=== PATIENT | male | born 1955 | race Caucasian/White ===

== ENCOUNTER 2022-06-08 08:58 | Day surgery (SDC) | payer MEDICARE ==
[~2022-06-08] VITALS: Ht 182.9 cm; Wt 95.5 kg
[~2022-06-08 08:58] MED LIST: ASPIRIN EC81 MG PO; LIPITOR20 MG PO; NITROGLYCERIN0.4 MG SL; NITROSTAT0.4 MG SL; PLAVIX75 MG PO; SYNTHROID150 MCG PO; ZESTRIL10 MG PO
--- NOTE | 2022-06-08 12:31 | NUR ---
06/08/22 1231 Lilliana Casas 1120 PT ARRIVED IN PACU NON RESPONSIVE TO NOXIOUS STIMULI WITH OPA IN PLACE. CHIN LIFT HELD BY IMTIAZ.
--- NOTE | 2022-06-09 09:15 | OR ---
[facility] [address] [place], [place] [address] Signed DATE OF OPERATION: 06/08/2022 SURGEON: Jyoti Vicente MD PREOPERATIVE DIAGNOSIS: History of tubular adenoma 2013; colon screening. POSTOPERATIVE DIAGNOSIS: Mild proctitis, no evidence of recurrent or new polyp. PROCEDURE: Total colonoscopy to cecum with biopsy of rectum. ANESTHESIA: Intravenous sedation, propofol infusion, Jyoti Jones CRNA. INDICATIONS: This 66-year-old white man is a patient of Dr. Manuel Escamilla and underwent colonoscopy by me in 2013 and found to have a tubular adenoma. I had recommend repeat colonoscopy in 3-5 years. He only recently has decided to proceed with colon evaluation. He has no symptoms of bleeding, diarrhea or constipation and is here for screening colonoscopy. Notably, he has a daily alcohol intake, which was significant and on that basis, propofol infusional sedation is recommended. Additionally notes from prior colonoscopy confirmed intolerance to conventional sedation. He understands risk of bleeding, infection, and perforation related to colonoscopy and wished to proceed. FINDINGS: The prep was good. Complete colonoscopy was undertaken to the cecum without problem. He had scattered diverticula of the sigmoid and mild proctitis. Biopsies were taken of the rectum. There was no evidence of polyps. PROCEDURE IN DETAIL: The patient brought to the surgical endoscopy suite and placed in lateral decubitus position, given intravenous sedation with propofol infusional technique. Note was made by the skein mercerizing machine operator of the high dosage of propofol needed for adequate sedation. Digital rectal examination was found to be normal. An Olympus video colonoscope was passed in the rectum and manipulated throughout the colon noting diverticular changes of the sigmoid to a minor degree. The scope was ultimately advanced to the cecum. The ileocecal valve and appendiceal orifice were Electronically Signed By: JYOTI VICENTE MD 06/09/22 0915 PATIENT NAME: DESIRE BARBOZA OPERATIVE REPORT DATE OF : 53 REPORT #: [id number] PHYSICIAN: JYOTI VICENTE MD PCP: MANUEL ESCAMILLA MD REPORT IS CONFIDENTIAL AND NOT TO BE RELEASED WITHOUT AUTHORIZATION [facility] [address] [place], [place] [address] Signed identified and found to be normal. Scope was withdrawn from that point and examination throughout showed no sign of abnormality as regards polyps or cancer. In the rectum, there was mild proctitis. Biopsies were obtained. The scope in retroflexed. Position did confirm some internal hemorrhoidal changes as well. Scope was removed. The patient was taken to the recovery room in good condition. CONCLUSION: Diagnosis mild proctitis and minimal diverticula. No evidence of polyps. PLAN: Recommend repeat colonoscopy in 10 years, sooner if symptoms should occur. Propofol infusional sedation would be most appropriate in the future. MD ANGELIQUE Serrano/MODL /[id number] cc: Manuel Escamilla MD Copies: MANUEL ESCAMILLA MD ~ Electronically Signed By: JYOTI VICENTE MD 06/09/22 0915 PATIENT NAME: DESIRE BARBOZA OPERATIVE REPORT DATE OF : 53 REPORT #: [id number] PHYSICIAN: JYOTI VICENTE MD PCP: MANUEL ESCAMILLA MD REPORT IS CONFIDENTIAL AND NOT TO BE RELEASED WITHOUT AUTHORIZATION
--- NOTE | 2022-06-09 15:04 | PATH ---
[facility] [address] [place], [place] [address] Signed SPECIMEN(S): A RECTAL BIOPSY SPECIMEN SOURCE: A. RECTAL BIOPSY CLINICAL HISTORY: Surveillance colonoscopy for history of polyps. Post: Mild proctitis. FINAL PATHOLOGIC DIAGNOSIS: Rectal biopsy: - Benign polypoid colonic mucosa with slight hyperplastic features and reactive epithelial changes. - Negative for dysplasia or malignancy. JVR:mini:C2NR MICROSCOPIC EXAMINATION: Histologic sections of all submitted blocks are examined by light microscopy. These findings, together with the gross examination, support the pathologic diagnosis. GROSS DESCRIPTION: The specimen, labeled and designated "RC, rectal biopsy," is received in formalin and consists of two serrano soft tissue fragment(s) that measure 0.2 cm in greatest dimension. The specimen is entirely submitted in cassette (A1). VB (under the direct supervision of a pathologist) The Gross Description was prepared using a voice recognition system. The report was reviewed for accuracy; however, sound-alike word errors, addition and/or deletions may occur. If there is any question about this report, please contact Client Services. PERFORMING LABORATORY: The technical component was performed by [facility], [address] [place] [id number] (CLIA# [id number]). Professional interpretation was performed by [facility] - [facility], [address] [place] [id number] (CLIA#: [id number]). Diagnostician: Sukhdev High MD Pathologist Electronically Signed 06/09/2022 PATIENT NAME: DESIRE BARBOZA PATHOLOGY DATE OF : 53 REPORT #: [id number] PHYSICIAN: [facility] PCP: MANUEL ROJAS MD REPORT IS CONFIDENTIAL AND NOT TO BE RELEASED WITHOUT AUTHORIZATION [address] [place], [place] [address] Signed Copies: ~ PATIENT NAME: DESIRE BARBOZA PATHOLOGY DATE OF : 53 REPORT #: [id number] PHYSICIAN: [facility] PCP: MANUEL ROJAS MD REPORT IS CONFIDENTIAL AND NOT TO BE RELEASED WITHOUT AUTHORIZATION
== END 2022-06-08 12:05 | disposition home or self-care (01) ==
LOC: DS 08:58 → OPS 08:58 → DS 09:15 → OPS 09:15
PROVIDERS: ATTEND Surgery
PROC: 0DBP8ZX Excision of Rectum, Via Natural or Artificial Opening Endoscopic, Diagnostic (ICD-10-PCS; principal; 2022-06-08 10:45)
DX: Z12.11 Encounter for screening for malignant neoplasm of colon (principal); Z86.010 Personal history of colon polyps; E03.9 Hypothyroidism, unspecified; K62.89 Other specified diseases of anus and rectum; I10 Essential (primary) hypertension; E78.5 Hyperlipidemia, unspecified; Z72.89 Other problems related to lifestyle; Z95.5 Presence of coronary angioplasty implant and graft; Z90.49 Acquired absence of other specified parts of digestive tract; Z20.822 Contact with and (suspected) exposure to COVID-19
CPT/HCPCS: 87502; C9803; J2704; J7121; U0003